=== PATIENT | male | born 1990 | race Hispanic/Latino ===

== ENCOUNTER → 2023-01-11 | Outpatient (REF) | payer SELFPAY ==
[2023-01-11 12:19] LABS: SEMEN APPEARANCE OPAQUE (OPAQUE); SEMEN VISCOSITY LIQUID (LIQUID); SEMEN VOLUME 3.9 ml (2.0-5.0); SPERM CONCENTRATION 28.4 M/ml (>=15.0); WBC CONCENTRATION <=1 M/ml (<=1 M/ml)
== END ==
LOC: M LAB REF 12:05
PROVIDERS: ATTEND Physician Assistant
DX: N46.9 Male infertility, unspecified (principal)

== ENCOUNTER 2024-03-31 18:58 | Emergency (ER) | payer SELFPAY ==
[~2024-03-31] VITALS: Ht 172.7 cm; Wt 78.8 kg
[2024-03-31 20:05] LABS: BASO % 0.5 % (0.0-1.0); EOS # 0.2 10^3/uL (0.0-0.5); HEMATOCRIT 41.9 % (42.0-52.0); HEMOGLOBIN 14.3 g/dl (13.5-17.5); LYMPH # 2.8 10^3/uL (1.5-5.0); LYMPH % 36.4 % (24.0-44.0); MEAN CORPUSCULAR HGB CONC 34.1 g/dl (32.0-36.5); MONO # 0.6 10^3/uL (0.0-0.8); MONO % 7.2 % (2.0-8.0); NEUTROPHILS % 52.8 % (36.0-66.0); PLATELET COUNT, AUTOMATED 254 10^3/uL (150-450); RED BLOOD COUNT 4.93 10^6/uL (4.30-6.10); WHITE BLOOD COUNT 7.7 10^3/uL (4.0-10.0)
[2024-03-31 20:34] LABS: ALBUMIN 3.9 G/DL (3.2-5.2); ALKALINE PHOSPHATASE 131 U/L (46-116); ALT/SGPT 37 U/L (7.0-40); AST/SGOT 24 U/L (<34); BILIRUBIN,TOTAL 0.4 MG/DL (0.3-1.2); BLOOD UREA NITROGEN 15 MG/DL (9-23); CALCIUM LEVEL 9.4 MG/DL (8.5-10.1); CARBON DIOXIDE LEVEL 29 MMOL/L (20-31); CHLORIDE LEVEL 108 MMOL/L (98-107); CREATININE FOR GFR 1.07 MG/DL (0.70-1.30); GLOMERULAR FILTRATION RATE > 60.0 (>60); GLUCOSE, FASTING 83 MG/DL (60-100); POTASSIUM SERUM 3.7 MMOL/L (3.5-5.1); SODIUM LEVEL 142 MMOL/L (136-145); TOTAL PROTEIN 7.1 G/DL (5.7-8.2)
[2024-03-31 21:00] VITALS: BP 138/81; TEMP 97; O2SAT 96
== END 2024-03-31 23:50 | disposition left against medical advice (07) ==
LOC: M ED 18:58
DX: Z53.21 Procedure and treatment not carried out due to patient leaving prior to being seen by health care provider (principal)

== ENCOUNTER → 2024-04-17 | Outpatient (REF) | payer OTHER ==
[2024-04-17 14:43] LABS: SEMEN APPEARANCE OPAQUE (OPAQUE); SEMEN VISCOSITY LIQUID (LIQUID); SEMEN VOLUME 3.5 ml (2.0-5.0); SEMEN pH 8.5 (7.0-8.0); SPERM CONCENTRATION 25.1 M/ml (>=15.0); WBC CONCENTRATION <=1 M/ml (<=1 M/ml)
== END ==
LOC: M LAB REF 10:58
PROVIDERS: ATTEND Specialist
DX: N46.9 Male infertility, unspecified (principal)

== ENCOUNTER 2024-12-12 21:16 | Emergency (ER) | payer OTHER ==
[~2024-12-12] VITALS: Ht 172.7 cm; Wt 78.3 kg
[2024-12-12] MEDS: ACETAMINOPHEN 325 MG TAB PO ONE (23:29)
[2024-12-12 23:41] VITALS: BP 130/72; TEMP 101; O2SAT 99
== END 2024-12-12 23:46 | disposition home or self-care (01) ==
LOC: M ED 21:16
DX: R50.9 Fever, unspecified (principal); B34.8 Other viral infections of unspecified site; Z88.6 Allergy status to analgesic agent

== ENCOUNTER 2025-07-20 16:20 | Emergency (ER) | payer OTHER ==
[~2025-07-20] VITALS: Ht 172.7 cm; Wt 78.7 kg
[2025-07-20 19:08] VITALS: BP 131/66; TEMP 97.9; O2SAT 100
== END 2025-07-20 22:30 | disposition left against medical advice (07) ==
LOC: M ED 16:20
DX: Z53.21 Procedure and treatment not carried out due to patient leaving prior to being seen by health care provider (principal)

== ENCOUNTER 2025-07-21 05:51 | Emergency (ER) | payer OTHER ==
[~2025-07-21] VITALS: Ht 172.7 cm; Wt 77.3 kg
[2025-07-21 08:06] VITALS: BP 125/76; TEMP 97.2; O2SAT 98
[2025-07-21] MEDS: predniSONE 20 MG TAB PO ONE (08:06)
== END 2025-07-21 08:09 | disposition home or self-care (01) ==
LOC: M ED 05:51
DX: R60.9 Edema, unspecified (principal); Z88.6 Allergy status to analgesic agent
CPT/HCPCS: 99283; J7512